=== PATIENT | female | born 1965 | race African-American/Black ===

== ENCOUNTER 2022-04-01 14:43 | Outpatient (CLI) | payer BC ==
[~2022-04-01 14:43] MED LIST: Magnevist 469MG/ML 20 ML VIAL ONE
== END 2022-04-01 14:44 | disposition home or self-care (01) ==
LOC: CSHMRI 14:43
PROVIDERS: ATTEND Obstetrics & Gynecology Gynecologic Oncology
DX: N85.2 Hypertrophy of uterus (principal); N95.0 Postmenopausal bleeding; R10.2 Pelvic and perineal pain; R19.00 Intra-abdominal and pelvic swelling, mass and lump, unspecified site; D25.9 Leiomyoma of uterus, unspecified
CPT/HCPCS: 72197; A9579